=== PATIENT | female | born 1995 | race Caucasian/White ===

== ENCOUNTER 2021-07-27 08:20 | Outpatient (REF) | payer OTHER, SELFPAY ==
[2021-07-27 08:49] LABS: Binax Internal Control QC Valid; Binax Lot number: 1911; Binax Now Covid-19 Ag Negative (Negative)
== END 2021-07-27 08:21 | disposition home or self-care (01) ==
LOC: HO.LAB 08:20
PROVIDERS: Physician Assistant Medical; Visit Provider Internal Medicine
DX: Z20.822 Contact with and (suspected) exposure to COVID-19 (principal)
CPT/HCPCS: 36415